=== PATIENT | male | born 1970 | race African-American/Black ===

== ENCOUNTER 2021-03-19 10:03 | Emergency (ER) | payer BC, SELFPAY ==
--- NOTE | ~2021-03-19 | XR_ITS ---
EXAMINATION: XR lumbar spine min 4V DATE: 03/19/2021 12:50 INDICATION: Severe low back pain. TECHNIQUE: 5 views of lumbar spine were obtained. COMPARISON: None. FINDINGS: There is 3 degrees dextrocurvature of thoracolumbar spine. Vertebral body heights are anette l. There is mildly decreased disc height at L4-L5. There is multilevel mild facet joint osteoarthriti s. At L5-S1, there is severe bilateral facet joint osteoarthritis. IMPRESSION: 1. Mild lumbar spondylosis. Reviewed, dictated and finalized at location A. SURE TESTING TECHNICIAN IMPRESSION: 1. Mild lumbar spondylosis.
[2021-03-19 10:15] VITALS: BP 160/99; PULSE 82; RESP 18; TEMP 36.8; O2SAT 100
[2021-03-19] MEDS: KETOROLAC (*BKC) 60 MG/2 ML VIAL IM (12:52)
--- NOTE | 2021-03-19 13:52 | ED.GENADULT ---
HPI - General Adult General Chief complaint: Back Pain/Injury Stated complaint: back pain Time Seen by Provider: 03/19/21 11:17 Source: patient Mode of arrival: ambulatory Limitations: no limitations History of Present Illness HPI narrative: Patient is 50-year-old male presented with chief complaint of low back pain that began when he bent over yesterday to put on his shoes to attempt to go to work. Patient reports that he feels pain to the center of his low back that radiates to the side and a spasm-like when he bends forward or stands up or rotates. Patient reports that when he is sitting still the discomfort is minimal. Patient denies any radiation of the pain into his lower extremities. Patient denies saddle paresthesias or loss of bowel bladder function. Patient denies any direct trauma or falls. Patient denies any fevers, chills, urinary symptoms or any other concerns. Patient denies any chronic medical conditions. Related Data Allergies Allergy/AdvReac Type Severity Reaction Status Date / Time No Known Allergies Allergy Verified 03/19/21 11:16 Review of Systems Review of Systems: CONSTITUTIONAL: Denies fever, chills, or sweats. EYES: Denies visual changes, redness, or discharge. ENT: Denies rhinorrhea, congestion, sore throat, or otalgia. CARDIOVASCULAR: Denies chest pain, palpitations, or edema. RESPIRATORY: Denies cough or dyspnea. GASTROINTESTINAL: Denies abdominal pain, nausea, vomiting, or diarrhea. GENITOURINARY: Denies dysuria or hematuria. SKIN: Denies rash or itching. MUSCULOSKELETAL: Reports back pain, denies joint pain, or myalgia. NEUROLOGIC: Denies headache, numbness, dizziness, or weakness. PSYCHIATRIC: Denies anxiety or depression. Exam Narrative: GENERAL: Well-appearing, well-nourished, and in no acute distress. Not diaphoretic. HEAD: Normocephalic, atraumatic. EYES: PERRLA and EOMI. CHEST: No respiratory distress. No tachypnea HEART: Regular rate and rhythm. BACK: Tender to palpation of lumbar area around L3. Patient reports of discomfort to the lumbar paracervical muscles right greater than left. Patient is able to stand and ambulate. Patient reports increase in discomfort with standing, sitting and rotation. No saddle paresthesias. ROM normal to lower extremities. EXTREMITIES: Normal range of motion. No edema. NEURO: No focal deficits. Alert and oriented x3. PSYCH: Normal mood and affect. Course Vital Signs Vital signs: Vital Signs Temperature 98.3 F 03/19/21 10:15 Pulse Rate 82 03/19/21 10:15 Respiratory Rate 18 03/19/21 10:15 Blood Pressure 160/99 H 03/19/21 10:15 Pulse Oximetry 100 03/19/21 10:15 Temperature 98.3 F 03/19/21 10:15 Pulse Rate 82 03/19/21 10:15 Respiratory Rate 18 03/19/21 10:15 Blood Pressure 160/99 H 03/19/21 10:15 Pulse Oximetry 100 03/19/21 10:15 Medical Decision Making MDM Narrative Medical decision making narrative: patients pain is positional in nature and localized to back without signs of cord compression or cauda equina based on neurological exam, skeletal exam and history. No fever or other significant factors to suggest osteomyelitis or spinal epidural abscess. No symptoms or signs to suggest pain is referred from abdominal or / cardiopulmonary sources. No pulsatile masses noted on exam. Patient ambulates with steady gait and is stable for outpatient management given case findings. Patient x-ray negative for fractures. Patient reports great improvement in his discomfort with Toradol injection. Patient given RICE instructions and instructions to follow-up with his primary care for further investigation if symptoms persist. Patient prescribed naproxen and cyclobenzaprine. Patient given return ER instructions should any worsening or emergent symptoms present. Patient denies any other questions or concerns at this time. Differential Diagnosis Differential Diagnosis: Fracture, sprain, strain, cauda equina, AAA, kidney stone
== END 2021-03-19 14:25 | disposition home or self-care (01) ==
PROVIDERS: Emergency Provider Emergency Medicine
DX: S39.012A Strain of muscle, fascia and tendon of lower back, initial encounter (principal); X50.9XXA Other and unspecified overexertion or strenuous movements or postures, initial encounter
CPT/HCPCS: 72110; 96372; 99283; J1885

== ENCOUNTER 2021-08-11 21:46 | Emergency (ER) | payer BC, SELFPAY ==
[2021-08-11] VITALS (14 sets, daily range): BP systolic 160–222; BP diastolic 84–106; PULSE 54–66; RESP 18–21; TEMP 36.2; O2SAT 98–100
--- NOTE | ~2021-08-11 | XR_ITS ---
XR chest 2V 08/12/2021 00:18 Indication: Hypertension. Shortness of breath. Procedure: 2 view chest Comparison: No prior studies for comparison. Findings: Heart size normal. Shallow inspiration with crowding of the pulmonary vessels. No focal air space disease, pulmonary edema, pleural effusion or suspected pneumothorax. Impression: 1: No acute cardiopulmonary disease. Reviewed, dictated and finalized at location A. Impression: 1: No acute cardiopulmonary disease.
--- NOTE | 2021-08-11 22:40 | ED.GENADULT ---
HPI - General Adult General Chief complaint: Unspecified Stated complaint: hypertension Time Seen by Provider: 08/11/21 22:41 History of Present Illness HPI narrative: 51-year-old presents to the emergency room for evaluation of high blood pressure. Patient states that his girlfriend took his blood pressure randomly today, and noticed reading of 220/100. Patient states that he was diagnosed with hypertension 5 years ago, and was taking lisinopril to manage it. Patient states when he ran out of refills he decided to stop taking the medication. Patient states that he has experienced worsening vision, frequent nocturia, and occasional headaches. Patient denies any chest pain or shortness of breath, palpitations. Related Data Allergies Allergy/AdvReac Type Severity Reaction Status Date / Time No Known Allergies Allergy Verified 08/11/21 21:56 Review of Systems Review of Systems: CONSTITUTIONAL: Denies fever, chills, or sweats. EYES: Denies visual changes, redness, or discharge. ENT: Denies rhinorrhea, congestion, sore throat, or otalgia. CARDIOVASCULAR: Denies chest pain, palpitations, or edema. RESPIRATORY: Denies cough or dyspnea. GASTROINTESTINAL: Denies abdominal pain, nausea, vomiting, or diarrhea. GENITOURINARY: Denies dysuria or hematuria. SKIN: Denies rash or itching. MUSCULOSKELETAL: Denies back pain, joint pain, or myalgia. NEUROLOGIC: Denies headache, numbness, dizziness, or weakness. PSYCHIATRIC: Denies anxiety or depression. Exam Narrative: GENERAL: Well-appearing, well-nourished, and in no acute distress. HEAD: Normocephalic, atraumatic. EYES: PERRLA and EOMI. CHEST: Clear to auscultation. No respiratory distress. No wheezes rales or rhonchi HEART: Regular rate and rhythm. No murmur heard. Normal peripheral pulses. ABDOMEN: Soft, nontender, nondistended, normal active bowel sounds. EXTREMITIES: Normal range of motion. No edema. SKIN: Warm, dry, no rash. NEURO: No focal deficits. Alert and oriented x3. PSYCH: Normal mood and affect. Course Vital Signs Vital signs: Vital Signs Temperature 36.2 C L 08/11/21 21:48 Pulse Rate 66 08/11/21 21:48 Respiratory Rate 18 08/11/21 21:48 Blood Pressure 222/88 H 08/11/21 21:48 Pulse Oximetry 100 08/11/21 21:48 Oxygen Delivery Room Air 08/11/21 21:48 Temperature 36.2 C L 08/11/21 21:48 Pulse Rate 62 08/11/21 23:01 Respiratory Rate 19 08/11/21 23:01 Blood Pressure 164/84 H 08/11/21 23:01 Pulse Oximetry 99 08/11/21 23:01 Oxygen Delivery Room Air 08/11/21 21:48 Medical Decision Making MDM Narrative Medical decision making narrative: 51-year-old male presented to the emergency room for evaluation of elevated blood pressure. Patient has been asymptomatic without confusion, chest pain, dysuria, vision changes, focal neurological deficits, or shortness of breath. Patient was hypertensive here. Patient was given dose of lisinopril 10 mg and his blood pressure on discharge was 156/90. Patient has not been taking his lisinopril for greater than 5 years. Doubt hypertensive emergency, as patient has no signs of altered mental status, no pulmonary edema, heart failure, ACS, renal insufficiency. EKG shows a left atrial enlargement otherwise no acute findings. Chest x-ray shows cardiomegaly with no acute cardiopulmonary abnormalities. CBC shows anemia, CMP is unremarkable. Urinalysis was unremarkable. Vital Signs Vital Signs: Vital Signs Temperature 36.2 C L 08/11/21 21:48 Pulse Rate 66 08/11/21 21:48 Respiratory Rate 18 08/11/21 21:48 Blood Pressure 222/88 H 08/11/21 21:48 Pulse Oximetry 100 08/11/21 21:48 Oxygen Delivery Room Air 08/11/21 21:48 Temperature 36.2 C L 08/11/21 21:48 Pulse Rate 62 08/11/21 23:01 Respiratory Rate 19 08/11/21 23:01 Blood Pressure 164/84 H 08/11/21 23:01 Pulse Oximetry 99 08/11/21 23:01 Oxygen Delivery Room Air 08/11/21 21:48 Lab Data Result diagrams:
--- NOTE | 2021-08-11 23:12 | ECG_ITS ---
Measurements Intervals [place] Rate: 54 P: 46 ID: [id number] QRS: -25 QRSD: 98 T: 70 QT: 437 QTc: 416 Interpretive Statements SINUS BRADYCARDIA POSSIBLE LEFT ATRIAL ENLARGEMENT DELAYED PRECORDIAL R/S TRANSITION BORDERLINE ECG Electronically Signed On 08-12-2021 7:13:24 CDT by Dinesh Hardwick D.O.
[2021-08-11 23:55] LABS: Basophils Percent Auto 0.6 % (0.2-1.2); Eosinophils Absolute Auto 0.2 K/mm3 (0-0.3); Eosinophils Percent Auto 2.1 % (0-4.4); Hemoglobin 13.2 g/dL (14.0-18.0); Immature Granulocyte Absolute 0.02 K/mm3 (0.00-0.031); Immature Granulocyte Percent A 0.3 % (0-0.5); Lymphocytes Absolute Auto 2.83 K/mm3 (0.9-3.2); Lymphocytes Percent Auto 39.7 % (18.3-44.2); Mean Corpuscular HGB Conc 32.2 g/dl (32-36); Mean Corpuscular Hemoglobin 28.1 pg (26-34); Mean Corpuscular Volume 87.2 fl (80-100); Mean Platelet Volume 9.8 fl (7.4-10.4); Monocytes Absolute Auto 0.5 K/mm3 (0.1-0.6); Monocytes Percent Auto 6.3 % (2.6-8.5); Neutrophils Absolute Auto 3.6 K/mm3 (1.3-6.7); Platelet Count Result 259 k/mm3 (150-375); Red Cell Distribution Width 14.6 % (11.5-14.5); White Blood Count 7.1 K/mm3 (4.5-10.0)
[2021-08-12 00:04] LABS: Alanine Aminotransferase 11 U/L (6-50); Albumin Level 3.8 g/dL (3.5-5.1); Alkaline Phosphatase 81 U/L (38-126); Anion Gap 6 mmol/L (8-16); Aspartate Amino Transferase 21 U/L (17-59); Bilirubin,Total 0.3 mg/dL (0.2-1.3); Blood Urea Nitrogen 13 mg/dL (9-20); Calcium 8.7 mg/dL (8.4-10.2); Carbon Dioxide 26 mmol/L (22-30); Chloride 106 mmol/L (98-107); Estimated CRCL calculation 60 ml/min; Estimated Glomerular Filt Rate > 60; Glucose 97 mg/dL (65-110); Potassium 3.6 mmol/L (3.4-5.0); Sodium 138 mmol/L (137-145)
[2021-08-12 00:07] VITALS: PULSE 56; RESP 14; O2SAT 99
[2021-08-12 00:44] LABS: Appearance Urine Clear (Clear); Bilirubin Urine Negative (Negative); Color Urine Yellow (Yellow); Glucose Urine UA Negative (Negative); Ketones Urine Trace mg/dL (Negative); Leukocyte Esterase Ur Negative LEU/UL (Negative); Nitrate Urine Negative (Negative); Protein Urine Negative (Negative); Specific Grav Ur >= 1.030 (1.001-1.035); Urobilinogen Urine 0.2 mg/dL (<2.0); pH Urine 5.5 (5.0-9.0)
[2021-08-12 00:45] LABS: Add Urine Microscopic? YES; Blood Urine Trace (Negative)
[2021-08-12 00:47] VITALS: PULSE 57; RESP 21; O2SAT 97
[2021-08-12 01:00] VITALS: PULSE 54; RESP 18; O2SAT 97
[2021-08-12 01:01] VITALS: BP 150/71; PULSE 74; RESP 19; O2SAT 97
[2021-08-12 01:11] VITALS: BP 149/74; PULSE 65; RESP 18; O2SAT 97
[2021-08-12 01:28] LABS: Bacteria Urine Trace /hpf; Mucus Urine Rare /lpf; RBC Urine 0-2 /hpf (0-2); Squamous Epithelial Cell Urine Occasional /hpf (Few); WBC Urine 0-3 /hpf
== END 2021-08-12 01:13 | disposition home or self-care (01) ==
PROVIDERS: Emergency Provider Nurse Practitioner Family
DX: I10 Essential (primary) hypertension (principal)
CPT/HCPCS: 36415; 71046; 80053; 81001; 85025; 93005; 99283

== ENCOUNTER 2021-12-14 13:17 | Emergency (ER) | payer BC, SELFPAY ==
[2021-12-14 13:30] VITALS: BP 181/91; PULSE 76; RESP 18; TEMP 35.8; O2SAT 100
--- NOTE | 2021-12-14 13:51 | ED.DENTAL ---
HPI - Dental/Oral General Chief complaint: Dental/Oral Stated complaint: abscess Source: patient Mode of arrival: ambulatory Limitations: no limitations History of Present Illness HPI Narrative: Patient presents for evaluation of left lower dental pain for the last 2 days. He states that pain is constant, throbbing, 10 out of 10 in severity. Reports associated swelling to the left mandibular region. No fever, chills, nausea, vomiting. He does smoke approximately 1 pack/day. He has been taking ibuprofen with some improvement in his symptoms thereafter. He called off work today and would like a work excuse. He has a history of hypertension but ran out of his lisinopril 20 mg daily. He denies any chest pain or shortness of breath Related Data Allergies Allergy/AdvReac Type Severity Reaction Status Date / Time No Known Allergies Allergy Verified 12/14/21 13:36 Review of Systems Review of Systems: CONSTITUTIONAL: Denies fever, chills, or sweats. EYES: Denies visual changes, redness, or discharge. ENT: Reports left lower dental pain with associated swelling. Denies rhinorrhea, congestion, or sore throat CARDIOVASCULAR: Denies chest pain, palpitations, or edema. RESPIRATORY: Denies cough or dyspnea. GASTROINTESTINAL: Denies abdominal pain, nausea, vomiting, or diarrhea. GENITOURINARY: Denies dysuria or hematuria. SKIN: Denies rash or itching. MUSCULOSKELETAL: Denies back pain, joint pain, or myalgia. NEUROLOGIC: Denies headache, numbness, dizziness, or weakness. PSYCHIATRIC: Denies anxiety or depression. [facility] Past Medical History Medical History (Updated 12/14/21 @ 14:03 by MANAV Cazares, ) Hypertension Tooth fracture Surgical History Surgical History No pertinent past surgical history Family History Family History Mother Diabetes mellitus CHF (congestive heart failure) Social History Social History Smoking packs per day: 1 Smoking cigarettes per day: 20.0 Smoking status: Current every day smoker Gender identity (if verbalized by the patient): Male Sexual Orientation (if Verbalized by the Patient): Straight or Heterosexual Spiritual care concerns: No Exam Narrative: GENERAL: Well-appearing, well-nourished, and in no acute distress. HEAD: Normocephalic, atraumatic. EYES: PERRLA and EOMI. ENT: Nares clear, no rhinorrhea or epistaxis. Mucous membranes moist. Tooth #19 is fractured. There is no visible or palpable abscess. Oropharynx without tonsillar hypertrophy exudate or other lesions. Bilateral TMs pearly miller nonbulging NECK: Supple. No adenopathy or masses. No carotid bruits or JVD CHEST: Clear to auscultation. No respiratory distress. No wheezes rales or rhonchi HEART: Regular rate and rhythm. No murmur heard. Normal peripheral pulses. ABDOMEN: Soft, nontender, nondistended, normal active bowel sounds. EXTREMITIES: Normal range of motion. No edema. SKIN: Warm, dry, no rash. NEURO: No focal deficits. Alert and oriented x3. PSYCH: Normal mood and affect. Course Course Emergency Course: This is a 51-year-old male who presented for evaluation of left lower dental pain. On exam he has a visible fracture. I do not appreciate a palpable or visible abscess. We will cover him with penicillin provided with a prescription for hydrocodone. He should call dentist on Thursday for appt. In terms of his blood pressure, he was on lisinopril at home but ran out of medication. Will refill. He will follow-up with primary care provider. Advised on smoking cessation. Go to ER for difficulty breathing/swallowing, or worsening symptoms. Patient in agreement with plan of care. Level of Care: Express Care Visit Vital Signs Vital signs: Vital Signs Temperature 35.8 C L 12/14/21 13:30 Pulse Rate 76 12/14
== END 2021-12-14 13:51 | disposition home or self-care (01) ==
PROVIDERS: Emergency Provider Nurse Practitioner
DX: S02.5XXA Fracture of tooth (traumatic), initial encounter for closed fracture (principal); X58.XXXA Exposure to other specified factors, initial encounter; I10 Essential (primary) hypertension; F17.210 Nicotine dependence, cigarettes, uncomplicated
CPT/HCPCS: 99213; G0463

== ENCOUNTER 2022-08-25 13:16 | Emergency (ER) | payer OTHER, BC, SELFPAY ==
--- NOTE | ~2022-08-25 | XR_ITS ---
EXAMINATION: XR lumbar spine 2-3V DATE: 08/25/2022 13:47 INDICATION: Low back pain TECHNIQUE: Anteroposterior and lateral views of the lumbar spine, and cone-down lateral view of the l umbosacral junction were obtained. COMPARISON: 03/19/2021 FINDINGS: Bone alignment is normal. There is no fracture. There is unchanged mild loss of interverteb ral disc space height at L4-5 and L5-S1. Small degenerative osteophytes project from the anterior end plates of multiple vertebral bodies. There is severe facet joint osteoarthritis at L5-S1. IMPRESSION: 1. Mild lumbar spondylosis without acute findings or significant interval change. Reviewed, dictated and finalized at location A. IMPRESSION: 1. Mild lumbar spondylosis without acute findings or significant interval bhagat tressa
--- NOTE | 2022-08-25 13:19 | ED.URI ---
HPI - URI/Sore Throat General Chief Complaint: Back Pain/Injury Stated Complaint: Lower back pain every time cough Time Seen by Provider: 08/25/22 13:18 Source: patient Mode of arrival: ambulatory Limitations: no limitations History of Present Illness HPI Narrative: Mr. Paulino is a 56-year-old male patient presenting to clinic today with complaints of low back pain that began yesterday. He reports no known injury however he does work for [employer] and has to lift boxes. States the pain is worse with sudden movement or coughing. History of a lumbar strain. States that he feels as though his back isn't aligned right and something is off. He denies any saddle anesthesia or loss of bowel bladder. He denies any urinary symptoms. No swelling/edema MD elicited complaint: cough and other (Back pain) Related Data Allergies Allergy/AdvReac Type Severity Reaction Status Date / Time No Known Allergies Allergy Verified 08/25/22 13:19 Review of Systems Review of Systems: Pertinent positives per HPI. Patient denies any fever, chills, rash, headache, visual changes, dizziness, cough, shortness of breath, chest pain, palpitations, nausea, vomiting, diarrhea, constipation, abdominal pain, or any urinary issues. [facility] [place] Past Medical History Medical History Hypertension Tooth fracture Surgical History Surgical History No pertinent past surgical history Family History Family History Mother Diabetes mellitus CHF (congestive heart failure) Social History Social History Smoking packs per day: 1 Smoking cigarettes per day: 20.0 Smoking status: Current every day smoker Gender identity (if verbalized by the patient): Male Sexual Orientation (if Verbalized by the Patient): Straight or Heterosexual Spiritual care concerns: No Comments At the time of my signature, I reviewed and agree with the nursing past medical, surgical, social, and family history. There is no relevant family history pertinent to the patient complaint. Exam Narrative: General: Well-developed, well nourished, in no apparent distress Head: Normocephalic, atraumatic Cardio: Regular rate and rhythm, s1 and s2 normal, no murmur appreciated. Resp: Clear to auscultation bilaterally, no rhonchi, rales, wheezing or rubs Musculoskeletal: No deformity, tender to palpation over L1-L2, grossly normal range of motion, bilateral lower muscle strength strong and equal, patellar reflexes 1+ bilaterally, peripheral pulse strong, no edema, no cyanosis, normal gait and station Course Course Emergency Course: Portions of this record may have been created with voice recognition software. Level of Care: Express Care Visit Vital Signs Vital signs: Vital signs reviewed MDM - URI/Sore Throat MDM Narrative Medical decision making narrative: At the time of visit patient is resting comfortably on the exam table. X-ray of the lumbar spine was performed in the clinic today and there is no sign of malalignment or fracture. I suspect patient has a lumbar strain. Supportive measures were discussed with the patient he voiced understanding discharge instructions and agrees to treatment plan. Differential Diagnosis Differential diagnosis: Likely other (Herniated disc, lumbar back strain, muscle spasm) Imaging Data Radiologist's impression: [facility] [address] [place] [address] XRay Report Signed Patient: Guzman Paulino : 1970 MR#: [id number] Age/Sex: 52 / M Acct:[id number] Loc: [facility]? ? ADM Date: 08/25/22Attending Dr: Ordering Physician: Flaco Robertson APRN Date of Service: 08/25/22 Procedure(s): XR lumbar spine 2-3V Accession Number(s
[2022-08-25 13:32] VITALS: BP 162/93; PULSE 58; RESP 12; TEMP 36.8; O2SAT 100
== END 2022-08-25 14:14 | disposition home or self-care (01) ==
LOC: EXPCOLL 13:22
PROVIDERS: Emergency Provider Nurse Practitioner Family
DX: S39.012A Strain of muscle, fascia and tendon of lower back, initial encounter (principal); X58.XXXA Exposure to other specified factors, initial encounter; I10 Essential (primary) hypertension; F17.210 Nicotine dependence, cigarettes, uncomplicated
CPT/HCPCS: 72100; 99213; G0463